=== PATIENT | female | born 1985 | race Caucasian/White ===

== ENCOUNTER 2022-08-04 08:03 | Day surgery (SDC) | payer OTHER ==
[~2022-08-04] VITALS: Ht 172.7 cm; Wt 122.5 kg
[2022-08-04] MEDS ORDERED: LIDOCAINE 2% 100 MG/5 ML UJET TP ONE (09:52)
[2022-08-04] MEDS ORDERED: KETOROLAC 30 MG/ML VIAL ONE (09:52)
[2022-08-04] MEDS ORDERED: ACETAMINOPHEN 100 ML IV SCH (09:55)
== END 2022-08-04 11:05 | disposition home or self-care (01) ==
LOC: MDS 08:03 → MMU 08:04 → MDS 11:05
PROVIDERS: ATTEND Internal Medicine Gastroenterology
DX: K62.5 Hemorrhage of anus and rectum (principal); K64.9 Unspecified hemorrhoids; M79.7 Fibromyalgia; K58.9 Irritable bowel syndrome, unspecified; Z88.0 Allergy status to penicillin; Z88.1 Allergy status to other antibiotic agents; Z79.899 Other long term (current) drug therapy; Z20.822 Contact with and (suspected) exposure to COVID-19
CPT/HCPCS: J1885